=== PATIENT | male | born 1945 | race Caucasian/White ===

== ENCOUNTER 2017-06-17 04:55 | Inpatient (IN) ==
[2017-06-08 16:18] LABS: Appearance,Urine CLEAR; Bilirubin,Urine NEG (NEG); Color,Urine YELLOW; Glucose,Urine (UA) NEGATIVE (NEG); Leukocyte Esterase,Urine NEG /uL (NEG); Nitrate,Urine NEG (NEG); Protein,Urine NEG (NEG); Specific Gravity,Urine 1.024 (1.000-1.035); Urine Blood NEG mg/dL (<0.03); Urobilinogen,Urine NEG (NEG)
[2017-06-08 16:49] LABS: Blood Urea Nitrogen 19 mg/dl (8-23)
[2017-06-08 16:50] LABS: Basophils # (Auto) 0 K/mcL (0.0-0.3); Basophils % (Auto) 0.3 % (0.0-2.0); Eosinophils # (Auto) 0.2 K/mcL (0.0-0.7); Eosinophils % (Auto) 2.4 % (0.0-7.0); Granulocytes % (Auto) 69.6 % (38.0-78.0); Lymphocytes # (Auto) 1.6 K/mcL (1.5-4.8); Lymphocytes % (Auto) 21.4 % (15.5-49.0); Mean Cell Volume 87.6 fL (80.0-100.0); Mean Corpuscular HGB Conc 34.1 g/dL (31.0-36.0); Mean Corpuscular Hemoglobin 29.9 pg (26.0-34.0); Monocytes # (Auto) 0.5 K/mcL (0.1-0.9); Monocytes % (Auto) 6.3 % (1.0-12.0); Platelet Count 242 K/mcL (140-440); RBC 5.45 M/mcL (4.50-5.90); Red Cell Distribution Width 14.8 % (11.5-14.5)
[2017-06-17] MEDS ORDERED: PREGABALIN 75 MG CAPSULE PO SCH (05:00)
[2017-06-17] MEDS ORDERED: ceFAZolin 1 GM VIAL IV SCH (05:00)
[2017-06-17] MEDS ORDERED: CELECOXIB 200 MG CAPSULE PO SCH (05:00)
[2017-06-17] MEDS ORDERED: oxyCODONE 10 MG TAB.ER.12H PO SCH (05:00)
[2017-06-17] MEDS ORDERED: KETOROLAC 30 MG, ROPIVACAINE HCL/PF 49.5 ML, EPINEPHrine 0.5 MG, 0.9 % SODIUM CHLORIDE ... IJ SCH (06:30)
[2017-06-17] MEDS ORDERED: TRANEXAMIC ACID 1,000 MG/10 ML VIAL IV ONE ×4 (08:00→11:34)
[2017-06-17] MEDS ORDERED: PROPOFOL 200 MG/20 ML VIAL IV ONE (08:00)
[2017-06-17] MEDS ORDERED: LIDOCAINE HCL/PF 100 MG/5 ML SYRINGE IV ONE (08:00)
[2017-06-17] MEDS ORDERED: MIDAZOLAM 5 MG/5 ML VIAL IV ONE (08:00)
[2017-06-17] MEDS ORDERED: ROPIVACAINE HCL/PF 20 ML VIAL IJ ONE (08:00)
[2017-06-17] MEDS ORDERED: DEXAMETHASONE 10 MG/ML VIAL IV ONE (08:00)
[2017-06-17] MEDS ORDERED: GLYCOPYRROLATE 0.2 MG/ML VIAL IV ONE (08:00)
[2017-06-17] MEDS ORDERED: ePHEDrine 50 MG/ML AMPUL IV ONE (08:00)
[2017-06-17] MEDS ORDERED: ONDANSETRON 4 MG/2 ML VIAL IV ONE (08:00)
[2017-06-17] MEDS ORDERED: ONDANSETRON 4 MG/2 ML VIAL IV PRN ×2 (09:18→11:34)
[2017-06-17] MEDS ORDERED: FLUMAZENIL 0.1 MG/ML ML IV PRN (09:18)
[2017-06-17] MEDS ORDERED: ACETAMINOPHEN 1,000 MG/100 ML BOTTLE IV ONE (09:18)
[2017-06-17] MEDS ORDERED: METHOCARBAMOL 1,000 MG/10 ML VIAL IV PRN (09:18)
[2017-06-17] MEDS ORDERED: IPRATROPIUM/ALBUTEROL 3 ML AMPUL.NEB NEB PRN (09:18)
[2017-06-17] MEDS ORDERED: fentaNYL 100 MCG/2 ML VIAL IV PRN (09:18)
[2017-06-17] MEDS ORDERED: diphenhydrAMINE 50 MG/ML VIAL IV PRN (09:18)
[2017-06-17] MEDS ORDERED: BENZOCAINE/MENTHOL 1 LOZENGE PO PRN (09:18)
[2017-06-17] MEDS ORDERED: LACTATED RINGERS 250 ML IV PRN (09:18)
[2017-06-17] MEDS ORDERED: MEPERIDINE 25 MG/ML SYRINGE IV PRN (09:18)
[2017-06-17] MEDS ORDERED: PROMETHAZINE 25 MG/ML VIAL IV PRN (09:18)
[2017-06-17] MEDS ORDERED: NALOXONE HCL 0.4 MG/ML VIAL IV PRN (09:18)
[2017-06-17] MEDS ORDERED: LACTATED RINGERS 1,000 ML IV SCH (09:30)
--- NOTE | 2017-06-17 09:35 | Brief Operative Note ---
Date of procedure: 06/17/17 Pre-op diagnosis: Right knee medial DJD Post-op diagnosis: other (Right knee tricompartmental DJD) Procedure: Right robotic assisted total knee arthroplasty Grafts/Implants: Yes (Devon CR 5 femur, 5 tibia, 11 insert, 36 patella) Anesthesia: spinal, GLMA Findings: tricompartmental arthritis Complications: none Surgeon: Praneeth David Gluing Machine Operator Electronic: Austen Miller Estimated blood loss (cc): 30 Specimens Removed/Pathology: none sent Condition: stable Disposition: PACU
--- NOTE | 2017-06-17 10:20 | Operative Note ---
DATE OF OPERATION: 06/17/2017 PREOPERATIVE DIAGNOSIS: Right knee medial compartment osteoarthritis. POSTOPERATIVE DIAGNOSIS: Right knee tricompartmental severe osteoarthritis. PROCEDURE PERFORMED: Right robotic-assisted total knee arthroplasty placing a Devon triathlon size 5 cruciate retaining femoral component, a size 5 tibial baseplate, an 11 mm X3 tibial insert with a 36 mm patellar button. SURGEON: Praneeth David M.D. FILLER AND TRIMMER: Naun Miller PA-C. ANESTHESIA: Spinal plus general. DRAINS: None. SPECIMENS: Bone cuts, which were discarded. BLOOD LOSS: Minimal. POSTOPERATIVE CONDITION: Stable. INDICATIONS FOR SURGERY: This is a 71-year-old male who had longstanding worsening knee pain. Radiographs showed [id number] medial compartment osteoarthritis. FINDINGS AT SURGERY: He had full-thickness tricompartmental osteoarthritis. Post implantation showed excellent limb alignment, stability and patellar tracking. PROCEDURE IN DETAIL: The patient had been seen preoperatively. Informed consent had been obtained after discussion of risks and benefits of surgery. Risks including, but not limited to, bleeding, possibly requiring transfusion; infection, possibly requiring implant removal and prolonged IV antibiotics; injury to nerves, blood vessels, and other surrounding structures; anesthetic risks; incomplete or no resolution of symptoms; stiffness; pain; instability; clunking; DVT and pulmonary embolus risks; and the possibility of needing further surgery. He understood these risks and wished to proceed. Correct operative site was marked in preoperative holding and patient received spinal anesthesia. He was then taken to the operating room and LMA general given. The right lower extremity was then carefully prepped and draped in normal sterile fashion, and a time-out was performed verifying patient name, operative site, and plan. Esmarch was used to exsanguinate the extremity and tourniquet was inflated. Midline incision was made with a scalpel through skin and subcutaneous tissue and then a medial parapatellar arthrotomy made. Subperiosteal exposure was done of the anteromedial proximal tibia and then a full inspection of the knee was performed. At this point, he was not considered a candidate for a partial knee. We elected to proceed with a total knee. We placed our checkpoints on the femur and tibia. We made two stab incisions over the femur and two over the tibia and placed bicortical pins, and the arrays were connected. We then checked our hip center of rotation and medial and lateral malleoli with the green probe and double-checked our femoral and tibial checkpoints with the green probe. We then did our mapping with the blue probe. Once this was completed, we removed osteophytes and then did our ligament balancing in flexion and extension. We then placed the tibia in 2 degrees of varus and the femur in 1 degree of varus to get symmetrical 17 mm flexion and extension gaps. We had about 4 degrees of external rotation. Once we liked our position, this was locked into the robot. We then made our bone cuts with the robotic arm. We then removed cut pieces of bone. We marked our tibial insert rotation and then pinned the tibial insert trial into place, prepared the tibia with the [employer] reamer and keel punch, and then placed a keeled tibial trial. The femur was elevated and curved osteotome used to remove posterior osteophytes with a curved osteotome and curet. We then placed the femoral trial, pinned this into place and drilled our peg holes. We trialed a 9 insert that seemed loose, so we went ahead and went up to an 11. This had excellent stability. We then took the knee into extension and prepared our patella. Initial measurement was 23 mm thick. We did a freehand resection removing 11 mm of bone. We sized this to a 36, which was medialized maximally. Holes were drilled and then 36 trial placed. We did a very limited lateral facetectomy. Check of the patellar construct thickness after placement of the patellar trial was 22 mm. We checked our patellar tracking with range of motion which was excellent, so we went ahead and removed trial components. Definitive implants were opened. We irrigated Irrisept right after our skin incision and again after we made our arthrotomy, and then at this time we went ahead and irrigated Irrisept again while cement was being mixed. After a minute we pulse lavaged copiously with saline. CO2 was used to clean the cancellous bone surfaces and then we cemented the tibia followed by the femur. Excess cement removed. An 11 insert trial was placed. The knee was taken into extension. Excess cement removed. The patellar button was cemented. We then filled the joint with Irrisept and then injected pain cocktail into the pericapsular and subcutaneous tissues. We then after a minute pulse lavaged copiously with saline until the cement had fully hardened. We then flexed the knee up. We did a final inspection and removal of cement. We injected pain cocktail in the posterior capsule and then pulse lavaged and then an 11 insert was impacted. The knee was placed in about 45 degrees of flexion. A #2 FiberWire interrupted [id number] were used around the superior quadrant of the patella, #1 Vicryl [id number] were used around the inferior quadrant, running #1 Vicryl was used for patellar tendon and quad tendon. Final Irrisept irrigation was done, and after a minute final pulse lavage, and then 2-0 Monocryl for subcutaneous and дмитрий for skin. We did have the checkpoints removed prior to closure. We then used 2-0 Monocryl for subcuticular and дмитрий for skin. Дмитрий were used for the pin sites. Xeroform and sterile dressing were applied. Tourniquet was released. The patient was awakened, extubated, and transferred to recovery in stable condition. BJB:patel Job ID: [id number] Doc ID: [id number] Praneeth David MD
[2017-06-17] MEDS ORDERED: TRANEXAMIC ACID 1,000 MG/10 ML VIAL IV SCH (10:45)
[2017-06-17] MEDS ORDERED: MAGNESIUM HYDROXIDE 30 ML ORAL.SUSP PO PRN (11:34)
[2017-06-17] MEDS ORDERED: HYDROmorphone 2 MG/ML SYRINGE IV PRN (11:34)
[2017-06-17] MEDS ORDERED: FLEETS ADULT ENEMA PR PRN (11:34)
[2017-06-17] MEDS ORDERED: POLYETHYLENE GLYCOL 3350 17 GM PACKET PO PRN (11:34)
[2017-06-17] MEDS ORDERED: BISACODYL 10 MG SUPP.RECT PR PRN (11:34)
[2017-06-17] MEDS ORDERED: NITROGLYCERIN 0.4 MG TAB.SUBL SL PRN (11:38)
--- NOTE | 2017-06-17 12:24 | XRay Report ---
CLINICAL INFORMATION: Postop total knee prostheses COMPARISON: None. FINDINGS: Total knee prostheses is anatomically aligned. No osseous normality. Periarticular gas and soft tissue swelling seen as expected IMPRESSION: Negative Interpreted and Authenticated by: Praveen Schwartz 06/17/17
[2017-06-17] MEDS: KETOROLAC 15 MG/ML VIAL IV SCH ×3 (13:42→23:26)
[2017-06-17] MEDS: 0.9 % SODIUM CHLORIDE 1,000 ML IV SCH ×2 (13:44→23:27)
[2017-06-17] MEDS: 0.9 % SODIUM CHLORIDE 10 ML SYRINGE IV SCH ×2 (13:46→21:27)
[2017-06-17] MEDS: ceFAZolin 1 GM VIAL IV SCH ×2 (16:02→23:29)
[2017-06-17] MEDS: BENZOCAINE/MENTHOL 1 LOZENGE PO PRN ×2 (16:46→21:26)
[2017-06-17] MEDS ORDERED: ATORVASTATIN 20 MG TABLET PO SCH (21:00)
[2017-06-17] MEDS ORDERED: SENNOSIDES 1 TABLET PO SCH (21:00)
[2017-06-17] MEDS ORDERED: amLODIPine 5 MG TABLET PO SCH (21:00)
[2017-06-17] MEDS ORDERED: UBIDECARENONE 100 MG PO SCH (21:00)
[2017-06-17] MEDS ORDERED: SAW PALMETTO 160 MG PO SCH (21:00)
[2017-06-17] MEDS ORDERED: MULTIVIT,THER IRON,CA,FA & MIN 1 TABLET PO SCH (21:00)
[2017-06-17] MEDS: DOCUSATE SODIUM 100 MG CAPSULE PO SCH (21:24)
[2017-06-17] MEDS: ASPIRIN 325 MG ENTERIC COATED TABLET PO SCH (21:25)
[2017-06-17] MEDS: HYDROcodone/APAP 10/325MG TABLET PO PRN (21:26)
[2017-06-18] MEDS: KETOROLAC 15 MG/ML VIAL IV SCH (05:41)
[2017-06-18] MEDS: 0.9 % SODIUM CHLORIDE 10 ML SYRINGE IV SCH (05:41)
[2017-06-18] MEDS ORDERED: LEVOTHYROXINE 50 MCG TABLET PO SCH (07:30)
--- NOTE | 2017-06-18 07:51 | Discharge Summary ---
Providers - Providers Patient information: Note initiated : 06/18/17 at 7:48 am Service Date, if different from initiated Date: [] Patient: Brant Hampton 71 y/o M admitted on 06/17/17 for Uni Medial DEWEY Knee vs Robotic Total Knee Arthrop. Chief Complaint: [] Discharge date: 06/18/17 Hospitalization Hospital course: Pt was admitted for a Total knee arthroplasty. He underwent the procedure on the day of admission and discharged post-op day 1. He was given aspirin for DVT prophylaxis and a rx for out-pt PT. f/u at [facility] in 2 weeks. Discharge diagnosis: R knee osteoarthrosis Exam - Exam Clean and dry: Yes Weight bearing status: as tolerated Ortho Discharge - TKA - Patient Instructions Diet: Regular Diet Activity: activity as tolerated Total Knee Protocol: For Total Knee: Start ROM KASIE with stationary bike or rocking chair. Work on gaining full extension of knee. Posterior dislocation precautions provided. Hip abductor strengthening and gait training instructions provided. Apply Cryocuff as instructed. Dressing Care: May shower in 2 days - Follow Up Plan Disposition: Home, Self-Care Prognosis: Good Rehab Potential: Good Overall status at discharge: patient is progressing back to baseline - Orders For Discharge Prescriptions: Aspirin [Ecotrin] 325 mg PO BID #30 tab.ec HYDROcodone/APAP 10/325MG [Gouldbusk 10/325Mg] 1 - 2 tab PO Q4HP PRN #90 tab PRN Reason: Pain Level 3-6 Pending Studies Resuscitation Status Full Code Diet Regular Diet Start ThuJun 17 1022 Hydrocodone Bitart/Acetaminophen (Gouldbusk 10/325mg) 0 tab PO Q4HP PRN PRN Reason: PAIN LEVEL 3-6 Last Admin: 06/17/17 21:26 Dose: 1 tab Amlodipine Besylate (Norvasc) 5 mg PO HS AYDIN Last Admin: 06/17/17 21:24 Dose: 5 mg Aspirin (Ecotrin) 325 mg PO BID [facility] Last Admin: 06/17/17 21:25 Dose: 325 mg Atorvastatin Calcium (Lipitor) 20 mg PO HS AYDIN Last Admin: 06/17/17 21:24 Dose: 20 mg Docusate Sodium (Colace) 100 mg PO BID [facility] Last Admin: 06/17/17 21:24 Dose: 100 mg Sodium Chloride (Sodium Chloride 0.9%) 1,000 mls @ 100 mls/hr IV .Q10H [facility] Last Admin: 06/17/17 23:27 Dose: Admin: 06/17/17 13:44 Dose: 100 mls/hr Iron Carb/Multivit/Cleaning Technician/Folic Acid (Multivitamin W/Minerals) 1 tab PO HS [facility] Last Admin: 06/17/17 21:26 Dose: 1 tab Ketorolac Tromethamine (Toradol) 15 mg IV Q6 AYDIN Stop: 06/19/17 06:01 Last Admin: 06/18/17 05:41 Dose: 15 mg Admin: 06/17/17 23:26 Dose: 15 mg Admin: 06/17/17 18:32 Dose: 15 mg Admin: 06/17/17 13:42 Dose: 15 mg Levothyroxine Sodium (Synthroid) 50 mcg PO ACB [facility] Last Admin: 06/18/17 07:02 Dose: 50 mcg Senna (Senokot) 2 tab PO HS [facility] Last Admin: 06/17/17 21:26 Dose: 2 tab Sodium Chloride (Saline Flush) 10 ml IV Q8 [facility] Last Admin: 06/18/17 05:41 Dose: 10 ml Admin: 06/17/17 21:27 Dose: 10 ml Admin: 06/17/17 13:46 Dose: Not Given Throat Lozenges (Cepacol) 1 lozenge PO PRN PRN PRN Reason: Sore Throat Last Admin: 06/17/17 21:26 Dose: 1 lozenge Admin: 06/17/17 16:46 Dose: 1 lozenge Shift Summary 06/18/17 03:50 Shift Summary by Shakira Frias Addendum entered by Shakira Frias R.N. 06/18/17 04:28: Patient eating and drinking well. IV kept saline locked. Right knee dressing dry and intact. Original Note: Patient slept off and on this shift. Medicated once for pain Gouldbusk 1 tablet last night and scheduled Toradol with good effect. Ambulated once in the hallway 440 ft using FWW and standby assist. Patient ambulating independently in his room. Quad pump exercises done by patient. Foot pumps and cryo-cuff on. Patient unable to empty completely his bladder. Voided frequently 450,350,200 mls. PVR 415, 375,473 respectively. The last one was done at 0250H. Initialized on 06/18/17 03:50 - END OF NOTE
[2017-06-18] MEDS: 0.9 % SODIUM CHLORIDE 1,000 ML IV SCH (07:52)
[2017-06-18] MEDS: ASPIRIN 325 MG ENTERIC COATED TABLET PO SCH (08:45)
[2017-06-18] MEDS: DOCUSATE SODIUM 100 MG CAPSULE PO SCH (08:45)
[2017-06-18] MEDS: HYDROcodone/APAP 10/325MG TABLET PO PRN (08:47)
== END 2017-06-18 11:15 | disposition home or self-care (01) ==
LOC: MEDSUR 04:55 → MEDSUROUT 04:55 → MEDSUR 04:56 → EDSTATUS 07:30 → MEDSUR 10:35
PROVIDERS: ADMIT Orthopaedic Surgery; ATTEND Orthopaedic Surgery